=== PATIENT | female | born 1940 | race Caucasian/White ===

== ENCOUNTER 2018-03-24 14:06 | Inpatient (IN) ==
[2018-03-24 15:10] LABS: Basophils # 0.1 10*3/uL (0.0-0.2); Basophils % 1.1 % (0.0-0.8); Eosinophils # 0.2 10*3/uL (0.0-0.87); Eosinophils % 1.6 % (0.00-10.9); Hematocrit 40.9 VOL% (35.7-47.0); Immature Granulocytes % 0.4 %; Immature Granulocytes Absolute 0.05 #; Lymphocytes % 16.4 % (21.3-54.2); Mean Corpuscular HGB Conc 31.8 GM/DL (32-36); Mean Corpuscular Hemoglobin 26 PG (27-34); Mean Corpuscular Volume 80.7 FL (87-102); Mean Platelet Volume 10.2 FL (9.6-12.0); Monocytes # 0.6 10*3/uL (0.11-0.8); Monocytes % 4.6 % (1.7-12.7); Neutrophils % 75.9 % (38.7-73.9); Platelet Count 273 T/CUMM (130-400); Red Blood Count 5.07 MC/CUMM (3.8-5.5); Red Cell Distribution Width 14.6 % (9.3-17.3); White Blood Count 11.9 T/CUMM (4-12)
[2018-03-24 15:27] LABS: INR 0.9; PT Patient Result 9.9 SECS; Partial Thromboplastin Time 30.8 SECS (0-40)
[2018-03-24 15:34] LABS: Alanine Aminotransferase 25 U/L (13-56); Albumin 4.1 G/DL (3.4-5.0); Alkaline Phosphatase 135 U/L (45-117); Aspartate Amino Transferase 14 U/L (0-37); Bilirubin,Total < 0.39 MG/DL (0.2-1.0); Blood Urea Nitrogen 12 MG/DL (7-18); Calcium 8.8 MG/DL (8.5-10.1); Glucose 102 MG/DL (74-106); Osmolality,Calculated 278.4 MOS/KG (273-304); Potassium 3.6 MMOL/L (3.5-5.1); Sodium 140 MMOL/L (136-145); Total Protein 7.7 G/DL (6.4-8.3)
[2018-03-24 15:52] LABS: Barbiturates Screen,Urine Negative (Negative); Benzodiazepines Screen,Urine Negative (Negative); Cannabinoid Screen,Urine Negative (Negative); Opiate Screen,Urine Negative (Negative); Phencyclidine Screen,Urine Negative (Negative)
[2018-03-24] MEDS ORDERED: hydrALAZINE 20 MG/1 ML VIAL IV STA (15:56)
[2018-03-24 16:14] LABS: Apearance,Urine CLEAR (Clear); Bacteria,Urine Occasional /HPF (Few); Bilirubin,Urine Negative (Negative); Blood, Urine Small mg/dL (Negative); Glucose,Urine (UA) Negative (Negative); Ketones,Urine Negative (Negative); Mucus,Urine Occasional /LPF (Occasional); Nitrite,Urine Negative (Negative); Protein,Urine Negative; RBC,Urine 1 /HPF (0-4); Squamous Epithelial Cell,Urine Occasional /HPF (0-10); Urine Color Straw (Yellow); Urine Specific Gravity 1.006 (1.001-1.035); Urine Urobilinogen < 2.0 EU/DL (0.2-1.0); WBC,Urine 6 /HPF (0-6)
[2018-03-24] MEDS: ENOXAPARIN 40 MG/0.4 ML SYRINGE SUBCUT SCH (16:34)
[2018-03-24] MEDS: ASPIRIN 325 MG TABLET PO SCH (16:34)
[2018-03-24] MEDS ORDERED: ALBUTEROL 1.25 MG/3 ML NEB RESP TX PRN (16:58)
[2018-03-24] MEDS ORDERED: ZALEPLON 5 MG CAPSULE PO PRN (16:58)
[2018-03-24] MEDS ORDERED: cefTRIAXone 1,000 MG in SYRINGE 1 EACH IV SCH (18:00)
[2018-03-24] MEDS: oxyCODONE ER 10 MG TABLET PO SCH ×2 (18:18→18:20)
[2018-03-24 19:02] LABS: Free T4 (Free Thyroxine) 0.79 NG/DL (0.76-1.46)
[2018-03-24] MEDS ORDERED: MIRTAZAPINE 30 MG TABLET PO SCH (21:00)
[2018-03-24] MEDS: PREGABALIN 100 MG CAPSULE PO SCH (21:21)
[2018-03-25 05:49] LABS: Basophils # 0.1 10*3/uL (0.0-0.2); Basophils % 0.7 % (0.0-0.8); Eosinophils # 0.2 10*3/uL (0.0-0.87); Eosinophils % 1.8 % (0.00-10.9); Hematocrit 40.9 VOL% (35.7-47.0); Hemoglobin 12.6 GM/DL (12.0-16.0); Immature Granulocytes % 0.4 %; Immature Granulocytes Absolute 0.04 #; Lymphocytes # 1.8 10*3/uL (1.4-4.0); Lymphocytes % 17.8 % (21.3-54.2); Mean Corpuscular HGB Conc 30.8 GM/DL (32-36); Mean Corpuscular Hemoglobin 25 PG (27-34); Mean Corpuscular Volume 80.5 FL (87-102); Mean Platelet Volume 10.1 FL (9.6-12.0); Monocytes # 0.6 10*3/uL (0.11-0.8); Monocytes % 5.7 % (1.7-12.7); Neutrophils # 7.5 10*3/uL (1.4-7.4); Neutrophils % 73.6 % (38.7-73.9); Platelet Count 264 T/CUMM (130-400); Red Blood Count 5.08 MC/CUMM (3.8-5.5); Red Cell Distribution Width 14.6 % (9.3-17.3); White Blood Count 10.2 T/CUMM (4-12)
[2018-03-25] MEDS: oxyCODONE ER 10 MG TABLET PO SCH (06:05)
[2018-03-25 06:39] LABS: Calcium 8.7 MG/DL (8.5-10.1); Osmolality,Calculated 279.4 MOS/KG (273-304); Potassium 3.4 MMOL/L (3.5-5.1)
[2018-03-25] MEDS ORDERED: LEVOTHYROXINE 125 MCG TABLET PO SCH (07:00)
[2018-03-25] MEDS ORDERED: POTASSIUM CHLORIDE RIDER 10 MEQ in PREMIX 1 EACH IV PRN (07:31)
[2018-03-25 07:42] LABS: Risk Ratio 4.55; VLDL CHOLESTEROL 42.4 MG/DL
[2018-03-25] MEDS: ASPIRIN 325 MG TABLET PO SCH (08:20)
[2018-03-25] MEDS: POTASSIUM CHLORIDE 20 MEQ TABLET PO PRN ×3 (08:21→16:02)
[2018-03-25] MEDS: PREGABALIN 100 MG CAPSULE PO SCH (08:21)
[2018-03-25] MEDS: ENOXAPARIN 40 MG/0.4 ML SYRINGE SUBCUT SCH (08:27)
[2018-03-25] MEDS ORDERED: ROFLUMILAST 500 MCG TABLET PO SCH (09:00)
[2018-03-25] MEDS ORDERED: METOPROLOL SUCCINATE XL 25 MG TABLET PO SCH (09:00)
[2018-03-25] MEDS ORDERED: ARIPiprazole 5 MG TABLET PO SCH (09:00)
[2018-03-25] MEDS ORDERED: NF (Umeclidinium Brm/Vilanterol Tr [Anoro Ellipta] 1 PUFF) INH SCH (09:00)
[2018-03-25] MEDS ORDERED: ROSUVASTATIN 10 MG TABLET PO SCH (09:00)
[2018-03-25] MEDS ORDERED: PANTOPRAZOLE 40 MG TABLET PO SCH (09:00)
[2018-03-25] MEDS ORDERED: SERTRALINE 100 MG TABLET PO SCH (09:00)
[2018-03-25 16:01] VITALS: BP 140/64
[2018-03-25] MEDS ORDERED: ROSUVASTATIN 20 MG TABLET PO SCH (21:00)
== END 2018-03-25 17:13 | disposition home or self-care (01) | DRG 66 ==
LOC: N.ED 14:06 → N.EDINP 15:56 → N.2E 16:49
PROVIDERS: ADMIT Internal Medicine; ATTEND Internal Medicine